=== PATIENT | female | born 1940 | race Caucasian/White ===

== ENCOUNTER → 2017-01-14 10:12 | Outpatient (CLI) | payer MEDICARE | END | disposition home or self-care (01) | LOC: D.MRI 01-10 14:30 | DX: M54.6 Pain in thoracic spine (principal); M54.5 Low back pain ==

== ENCOUNTER 2017-04-03 11:10 | Inpatient (IN) | payer MEDICARE ==
[~2017-04-03] VITALS: Ht 165.1 cm; Wt 59.0 kg
[2017-04-03 11:41] VITALS: BP 148/84; BMI 21.6
--- NOTE | 2017-04-03 12:30 | NUR ---
PATIENT IS AWAKE AND ALERT AND SHE IS ABLE TO ANSWER QUESTIONS APPROPRIATELY. PATIENT IS DEPRESSED AND SHE SAYS SHE WISHES SHE WOULD JUST NOT WAKE UP, SHE HAS A THOUGHT, BUT SHE SAYS ALL SHE KNOWS IS THAT SHE WANTS TO .PATIENT AMBULATES WITH A CANE NORMALLY, BUT SHE IS USING A WALKER NOW. PATIENT HAS A LONG HX OF DEPRESSION. AT THE AGE OF 14, SHE DID CUT HER WRISTS BECAUSE SHE SAID HER DID NOT WANT TO BE ANYMORE, SHE SAYS SHE MARIIED THE SAME MAN THREE TIMES. PATIENT HAS ONE DAUGHTER THAT HAS BEEN STAYING WITH HER SINCE NOVEMBER SINCE SHE BROKE HER PELVIS THEN WENT TO REHAB., NOW SHE IS HOME AND SAYS SHE DOES NOT WANT TO BE HERE, SHE HATES TO SOCILAIZE AND ALWAYS HAS. SHE SAYS DR. EDITH KAT EXPLAINED TO HER THAT SHE FELT IT NECESSARY TO BE INPATIENT BECAUSE THE MEDICATION CHANGES HAVE NOT BEEN EFFECTIVE AND THAT SHE DID NOT FEEL IT WOULD DO HER ANY GOOD TO BE SENT HOME ON A NEW ANTIDEPRESSANT AND IT NOT WORK EITHER, PLUS NOW THE PATIENT HAS MENTIONED FEELING SUICIDAL. PATIENT CONTRACTS FOR NO SELF HARM, BUT SAYS "I WILL DO MY BEST". AFTER THE INTERVIEW AND ASSESSMENT PATIENT DID MAKE A POSITIVE STATEMENT AND SHE SAID "I AM GLAD I CAME" EXPLAINED TO HER THAT THAT WAS AN EXCELLENT START. PATIENT TAKEN TO DINING ROOM FOR LUNCH.
[2017-04-03 13:27] LABS: BASOPHILS 0.3 % (0-2); EOSINOPHILS 1.9 % (0-7); HEMATOCRIT 44.4 % (36.0-48.0); HEMOGLOBIN 14.8 g/dL (12-16); IMMATURE GRANULOCYTES 0.2 % (0-5); LYMPHOCYTES 37.5 % (15-50); MCH 33.9 pg (26.0-34.0); MCHC 33.3 g/dL (31.0-37.0); MCV 101.6 fL (80.0-100.0); MEAN PLATELET VOLUME 11.4 fL (7.4-10.4); NEUTROPHILS 50.1 % (40-80); PLATELET COUNT 168 10x3/uL (130-400); RBC 4.37 10x6/uL (4.00-5.40); RDW 13.1 % (11.5-14.5); WBC 9.2 10x3/uL (4.8-10.8)
[2017-04-03 13:56] LABS: ALBUMIN 3.6 g/dL (3.4-5.0); ALKALINE PHOSPHATASE 92 U/L (46-116); ALT (SGPT) 19 U/L (10-68); BILIRUBIN - TOTAL 0.67 mg/dL (0.2-1.3); CALC OSMOLALITY 277 mosm/kg (275-300); CALCIUM 9.5 mg/dL (8.5-10.1); CARBON DIOXIDE 30.9 mmol/L (21.0-32.0); CHLORIDE - SERUM 104 mmol/L (98-107); CHOL - HDL RATIO 3.2 ratio (2.3-4.1); CHOLESTEROL, TOTAL 183 mg/dL (0-200); CREATININE - SERUM 0.5 mg/dL (0.6-1.3); GLUCOSE 99 mg/dL (74-106); HDL CHOLESTEROL 58 mg/dL (32-96); LDL CHOLESTEROL 106 mg/dL (0-100); LDL-HDL RATIO 1.8 ratio (1.5-3.5); POTASSIUM - SERUM 4.2 mmol/L (3.5-5.1); PROTEIN - SERUM 7.4 g/dL (6.4-8.2); SODIUM 140 mmol/L (136-145); THYROID STIMULATING HORMONE 3.97 uIU/mL (0.36-3.74); TRIGLYCERIDE 99 mg/dL (30-200); UREA NITROGEN 10 mg/dL (7-18); eGFR NON AFRICAN AMERICAN > 90 mL/min (90-120)
[2017-04-03] MEDS ORDERED: DURAGESIC1 PATCH .1 TRANSDERM (14:11)
[2017-04-03] MEDS ORDERED: PROAIR HFA8.5 GM (14:14)
[2017-04-03 14:20] LABS: HEMOGLOBIN A1C 5.4 % (4.8-6.0)
[2017-04-03 14:38] LABS: INR 4.04 (0.85-1.17); PROTIME 39.9 SECONDS (11.6-15.0)
[2017-04-03] MEDS ORDERED: PROVENTIL HFA6.7 GM INH (15:20)
[2017-04-03] MEDS ORDERED: XANAX0.5 MG PO (15:21)
[2017-04-03] MEDS ORDERED: COUMADIN5 MG PO (15:22)
[2017-04-03] MEDS ORDERED: COUMADIN7.5 MG PO (15:23)
[2017-04-03] MEDS ORDERED: FOLIC ACID1 MG PO (15:23)
[2017-04-03] MEDS ORDERED: CARDIZEM60 MG PO (15:24)
[2017-04-03] MEDS ORDERED: EFFEXOR XR150 MG PO (15:24)
[2017-04-03] MEDS ORDERED: DESERYL100 MG PO (15:25)
[2017-04-03] MEDS ORDERED: ULTRAM50 MG PO (15:25)
[2017-04-03] MEDS ORDERED: LANOXIN125 MCG PO (15:26)
[2017-04-03] MEDS ORDERED: TRIMETHOPRIM100 MG PO (15:26)
[2017-04-03] MEDS ORDERED: POTASSIUM CHLO10 ME1 PO (15:27)
[2017-04-03] MEDS ORDERED: CALCIUM 600 +1 EAC3 PO (15:28)
[2017-04-03] MEDS ORDERED: VITAMIN B-121000 MCG PO (15:28)
[2017-04-03] MEDS ORDERED: MIRALAX17 GM PO (15:29)
[2017-04-03] MEDS ORDERED: BAYER CHEWABLE81 MG PO (15:29)
--- NOTE | 2017-04-03 18:09 | NUR ---
PATIENT DID ASK ABOUT PAIN PATCH, WILL SPEAK TO PSYCHIATRIST TO CHECK ON HIS DECISION.
[2017-04-03 19:48] VITALS: BP 148/87
--- NOTE | 2017-04-04 02:31 | NUR ---
B) Recieved patient in the day room, alert and oriented, calm and cooperative with care and assessment, I) Administered perscribed medications, monitored for safety, contracted for safety, R) Medication compliant, resting quietly now. P) Continue plan of care.
[2017-04-04 06:15] LABS: VITAMIN D 25 HYDROXY 40.9 ng/mL (30.0-100.0)
[2017-04-04 07:25] LABS: RAPID PLASMA REAGIN Non Reactive (Non Reactive)
[2017-04-04 08:19] LABS: FOLATE (FOLIC ACID) - SERUM >20.0 ng/mL (>3.0)
--- NOTE | 2017-04-04 12:30 | NUR ---
B) PATIENT IS AWAKE AND ALERT AND SHE IS BLUNTED IN AFFECT, SHE DID SEE DR. ABURTO TODAY AND SCORED A 20/30 ON THE MOCA TEST. PATIENT IS DENYING SUICIDAL IDEATIONS. SHE IS DRAMATIC AT TIMES. SHE ISOLATES AWAY FROM OTHERS MOSTLY. I) PROVIDE PRESCRIBED MEDS. R) PATIENT IS COMPLIANT WITH MEDS. P) CONTINUE POC.
[2017-04-04 14:42] VITALS: Ht 165.1 cm; Wt 59.0 kg
[2017-04-04 15:09] VITALS: BP 95/63
[2017-04-04 19:00] VITALS: BP 136/73
--- NOTE | 2017-04-05 01:18 | NUR ---
ORIENTED TO PERSON AND PLACE. PT CONTINUES TO BE VERY ANXIOUS AND DEPRESSED. DENIES SI. EDUCATED PT ON OUT PT RESOURCES AND COPING SKILLS. PT VERBALIZED UNDERSTANDING. MEDICATIONS GIVEN ORDERED. FALL PRECAUTIONS MAINTAINED. WILL CONTINUE TO MONTIOR AND CONTINUE CARE PLANS.
[2017-04-05 06:25] LABS: INR 1.73 (0.85-1.17); PROTIME 20.2 SECONDS (11.6-15.0)
[2017-04-05 10:42] VITALS: BP 118/75
--- NOTE | 2017-04-05 13:00 | NUR ---
B) PT CAME AND WALKED WITH HER, BUT SHE DID FANTASTIC AND THEY SIGNED OFF, SHE IS ORIENTED X3 TODAY. SHE HAS NOT BEEN TEARFUL NOR HAS SHE MADE ANY SI. I) PROVIDE PRESCRIBED MEDS. R) PROVIDE PRESCRIBED MEDS. P) CONTINUE POC.
[2017-04-05 19:30] VITALS: BP 163/88
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
--- NOTE | 2017-04-06 01:51 | NUR ---
Given Ultram 50mg po PRN on request for generalized aches and pains, pain level rated 5/10.
--- NOTE | 2017-04-06 03:12 | NUR ---
Analgesic deemed effective, patient sleeping at this time.
[2017-04-06 07:00] VITALS: BP 134/84
[2017-04-06 09:36] LABS: PROTIME 16.2 SECONDS (11.6-15.0)
[2017-04-06 09:37] LABS: INR 1.31 (0.85-1.17)
[2017-04-06 19:30] VITALS: BP 152/71
--- NOTE | 2017-04-06 20:48 | NUR ---
PT IS RECEIVED AT NURSE STATION IN CHAIR. PT IS ALERT AND ORIENTED X3. PT DENIES SI- CONTRACTS FOR SAFETY. SHE STATED THE MEDICATION HAS HER FEELING BETTER TODAY. PT HAS BEEN VERY PLEASANT WITH STAFF AND PEERS. PT IS COOPERATIVE WITH STAFF AND COMPLIANT WITH MEDS AND CARE. PT IS REDIRECTED AND REORIENTED NEEDED. SAFETY MEASURES ARE IMPLEMENTE. WILL CONTINUE TO MONITOR AND CONTINUE WITH PLAN OF CARE.
--- NOTE | 2017-04-06 21:10 | NUR ---
RECEIVED IN DAYROOM. SITTING IN WHEELCHAIR. CALM AND COOPERATIVE WITH CARE AND ASSESSMENTS. DENIES THOUGHTS OF SELF HARM. ENCOURAGE TO EXPRESS NEEDS. EXCOURAGE TO KEEP FEET UP. CONTINUES TO SIT QUIETLY IN WHEELCHAIR. CONTINUE PLAN OF CARE
[2017-04-07 06:28] LABS: INR 1.45 (0.85-1.17); PROTIME 17.6 SECONDS (11.6-15.0)
[2017-04-07 10:13] VITALS: BP 107/71
--- NOTE | 2017-04-07 17:31 | NUR ---
Alert and oriented times three. reports she is still depressed but, " it's a miracle that has happened, being here around these people." No suicidial ideations. Contracted for safety. Safety maintained. Continue plan of care.
[2017-04-07 19:30] VITALS: BP 185/84
--- NOTE | 2017-04-07 20:19 | NUR ---
RECEIVED IN DAYROM. UPSET BECAUSE SHE STATES ITS THERE IS SO MUCH NOISE. CALM AND COOPERATIVE WITH CARE AND ASSESSMENTS. DENIES THOUGHTS OF SELF HARM. REDIRECT AZND REORIENT AT NEEDED. CONTINUES TO SIT WITH STAFF AT TABLE. CONTINUE PLAN OF CARE
[2017-04-08 07:39] LABS: INR 1.45 (0.85-1.17); PROTIME 17.6 SECONDS (11.6-15.0)
--- NOTE | 2017-04-08 09:51 | NUR ---
Alert and oriented times three, flat affect. Cooprative with assessment. Monitor for any suicidial ideations and contract for safety. Encourage group participation and verbalization of feelings. Isolates to one side of room in chair, reading book and does not socialize much. States she is tired and is ready to go home. Verbalizes no suicidial ideations. Contracted for no self harm. Express she feels better. Safety maintained. Continue plan of care and expression of feelings and group participation.
[2017-04-08 11:12] VITALS: BP 143/74
--- NOTE | 2017-04-08 20:18 | NUR ---
RECEIVED IN DAYROOM. SITTING IN A CHAIR WITH PEERS AT HER SIDE. SOCIALIZING AT TIMES. WATCHING TV AT TIMES. CALM AND COOPERATIVE WITH CARE AND ASSESSMENTS. DENIES THOUGHTS OF SELF HARM. CONTINUES TO SIT QUIETLY IN CHAIR. CONTINUE PLAN OF CARE
[2017-04-09 06:56] LABS: INR 1.88 (0.85-1.17); PROTIME 21.6 SECONDS (11.6-15.0)
--- NOTE | 2017-04-09 09:30 | NUR ---
B) Rec'd pt in day room, alert, pleasant mood, soft spoken, denies suicidal ideation. I) Admin meds as ordered, provide group therapy as directed. R) Med compliant, sorne well with no s/s adverse reaction, takes meds whole without difficulty. Participates in group as directed. P) Cont current plan of care including meds and group activity.
[2017-04-09 11:34] VITALS: BP 142/82
[2017-04-09] MEDS ORDERED: ARICEPT5 MG PO (17:37)
--- NOTE | 2017-04-09 19:00 | NUR ---
RECEIVED PT IN DAY ROOM. PT SOCIALIZING WITH PEERS, AND WATCHING TV. NO SIGNS OF DISTRESS. WILL CONTINUE WITH PLAN OF CARE.
[2017-04-09 19:30] VITALS: BP 139/73
--- NOTE | 2017-04-10 10:55 | NUR ---
B) PATIENT IS AWAKE AND SHE IS GOING HOME TODAY, SHE SAYS "CAN SOMEONE HELP ME TO MY CAR WHEN I LEAVE" SHE SAYS "I'M JUST FEELING SO WEAK TODAY" PATIENT IS ORIENTED X 3, SHE IS NOT MAKING ANY SUICIDAL IDEATIONS. I) PROVIDE PRESCRIBED MEDS. R) PATIENT IS COMPLIANT WITH MEDS. P) CONTINUE DISCHARGE PLAN.
--- NOTE | 2017-04-10 13:15 | NUR ---
PATIENT'S DAUGHTER HERE TO PICK HER UP TO TAKE HER HOME. ALL BELONGINGS ACCOUNTED FOR AND PACKED. D/C ORDERS FAXED TO [facility], MEDS CALLED TO [facility]. JESUS ASSITED PATIENT INTO VEHICLE, PATIENT D/C'D OFF THE UNIT.
== END 2017-04-10 13:18 | disposition home or self-care (01) | DRG 881 ==
LOC: D.PSYCH 11:10 → UNDOADMIN 11:10 → D.PSYCH 04-10 13:18
PROVIDERS: Family Medicine; ADMIT Psychiatry & Neurology Psychiatry
DX: F32.9 Major depressive disorder, single episode, unspecified (principal); K57.90 Diverticulosis of intestine, part unspecified, without perforation or abscess without bleeding; S32.9XXD Fracture of unspecified parts of lumbosacral spine and pelvis, subsequent encounter for fracture with routine healing; X58.XXXD Exposure to other specified factors, subsequent encounter; I48.91 Unspecified atrial fibrillation; F41.9 Anxiety disorder, unspecified; Z91.81 History of falling; M54.5 Low back pain; E53.8 Deficiency of other specified B group vitamins; K59.00 Constipation, unspecified